=== PATIENT | female | born 1960 | race Two or more races ===

== ENCOUNTER 2021-07-15 10:15 | Emergency (ER) | payer OTHER ==
[~2021-07-15] VITALS: Ht 144.8 cm; Wt 59.9 kg
[2021-07-15] MEDS ORDERED: GRALISE600 MG PO (10:28)
[2021-07-15] MEDS ORDERED: ZOLOFT100 MG PO (10:28)
[2021-07-15] MEDS ORDERED: ZIPSOR25 MG PO (10:30)
== END 2021-07-15 12:40 | disposition home or self-care (01) ==
LOC: ER 10:15
DX: S60.922A Unspecified superficial injury of left hand, initial encounter (principal); S59.902A Unspecified injury of left elbow, initial encounter; W18.30XA Fall on same level, unspecified, initial encounter; Y92.89 Other specified places as the place of occurrence of the external cause; I10 Essential (primary) hypertension